=== PATIENT | female | born 1975 | race African-American/Black ===

== ENCOUNTER 2022-01-01 15:53 | Emergency (ER) | payer OTHER ==
[2022-01-01 16:19] VITALS: BP 128/79; PULSE 74; RESP 18; TEMP 98.2; BMI 36.9
== END 2022-01-01 16:58 | disposition home or self-care (01) ==
LOC: JERFT 15:53 → JER 15:53 → JERFT 16:58
DX: S93.402A Sprain of unspecified ligament of left ankle, initial encounter (principal)
CPT/HCPCS: 73610-TC-LT-FY; 99284-25